=== PATIENT | female | born 1960 | race Hispanic/Latino ===

== ENCOUNTER 2017-06-25 10:30 | Emergency (ER) | payer MEDICARE ==
[~2017-06-25] VITALS: Ht 154.9 cm; Wt 68.9 kg
[~2017-06-25 10:30] MED LIST: ATORVASTATIN CA20 MG PO; DIGOXIN250 MCG PO; HUMALOG100 UNITS/ SQ; LANTUS100 UNITS/ SQ; LEVAQUIN500 MG PO; LEVOTHYROXINE50 MCG PO; LYRICA100 MG PO; METOPROLOL SUC200 MG PO; NATEGLINIDE120 MG PO; PROMETHAZINE-D118 ML PO; VITAMIN D31000 UNIT PO; WARFARIN SODIU2.5 MG PO
[2017-06-25 12:05] LABS: BASOPHILS % 0.4 % (0.0-1.0); EOSINOPHILS # (AUTO) 0.1 (0.0-0.4); EOSINOPHILS % 0.9 % (0.0-6.0); HEMATOCRIT 34.9 % (34.2-44.1); HEMOGLOBIN 11.2 g/dL (12.0-16.0); LYMPHOCYTES # (AUTO) 1.3 (1.0-3.2); LYMPHOCYTES % 18.4 % (18.0-39.1); MEAN CORPUSCULAR HEMOGLOBIN 28.1 pg (28-32); MEAN CORPUSCULAR HGB CONC 32.1 g/dL (31-35); MEAN CORPUSCULAR VOLUME 87.7 fL (81-99); MONOCYTES # (AUTO) 0.3 (0.2-0.8); MONOCYTES % 4.6 % (4.4-11.3); NEUTROPHILS # (AUTO) 5.3 (2.1-6.9); NEUTROPHILS % 75.3 % (38.7-80.0); PLATELET COUNT 196 x10e3/uL (140-360); RED BLOOD COUNT 3.98 x10e6/uL (3.6-5.1); RED CELL DISTRIBUTION WIDTH 15.9 % (11.7-14.4)
[2017-06-25 12:24] LABS: INFLUENZAE A&B ANTIGEN (RAPID) NEGATIVE (NEGATIVE); STREPTOCOCCUS GRP A ANTIGEN NEGATIVE (NEGATIVE)
--- NOTE | 2017-06-25 12:24 | Diagnostic Imaging Report ---
PROCEDURE: Frontal and lateral views of the chest. COMPARISON: 03/22/2013 INDICATIONS: COUGH FINDINGS: Lines/tubes: Stable right chest wall cardiac device. Median sternotomy wires and prosthetic valve are again seen. Lungs: The lungs are well inflated. Mild central vascular congestion. Pleura: There is no pleural effusion or pneumothorax. Questionable right lateral pleural thickening, not seen on prior exam. Heart and mediastinum: The cardiac silhouette is enlarged. Bones: No acute bony abnormality. IMPRESSION: Enlarged cardiac silhouette with mild central vascular congestion. Questionable right lateral pleural thickening, not seen on prior exam. Underlying pneumonia, especially in the right mid lung cannot be excluded. Dictated by: Sebastian Beatty M.D. on 06/25/2017 at 12:24 Electronically approved by: Sebastian Beatty M.D. on 06/25/2017 at 12:24
[2017-06-25 13:21] LABS: ALANINE AMINOTRANSFERASE 31 IU/L (0-55); ALBUMIN/GLOBULIN RATIO 0.9 (0.8-2.0); ALKALINE PHOSPHATASE 129 IU/L (40-150); ANION GAP 13.9 mmol/L (8-16); BLOOD UREA NITROGEN 11 mg/dL (7-26); BUN/CREATININE RATIO 15 (6-25); CALCIUM 9.1 mg/dL (8.4-10.2); CARBON DIOXIDE 29 mmol/L (22-29); CHLORIDE 101 mmol/L (98-107); CREATININE, SERUM 0.73 mg/dL (0.57-1.11); EST GLOMERULAR FILTRATION RATE > 60 ML/MIN (60-); GLUCOSE 135 mg/dL (74-118); POTASSIUM 3.9 mmol/L (3.5-5.1); SODIUM 140 mmol/L (136-145)
== END 2017-06-25 14:40 | disposition home or self-care (01) ==
LOC: ER 10:30
DX: R53.1 Weakness (principal); H92.02 Otalgia, left ear; R07.0 Pain in throat
CPT/HCPCS: 36415; 71046; 80053; 83518; 85025; 87070; 87400; 93005; 99283